=== PATIENT | female | born 1990 | race African-American/Black ===

== ENCOUNTER 2018-10-06 12:10 | Emergency (ER) | payer OTHER ==
[~2018-10-06] VITALS: Ht 162.6 cm; Wt 163.3 kg
[~2018-10-06 12:10] MED LIST: CLONIDINE0.1 PO; PHENERGAN 25 MG25 M1 PO
[2018-10-06 14:48] LABS: HEMATOCRIT 34.9 % (37.0-47.0); HEMOGLOBIN 11.4 gm/dL (12.0-15.0); MCH 24.7 pg (26.0-34.0); MCHC 32.6 g/dL (28.0-37.0); MCV 75.8 fL (80.0-100.0); RBC 4.61 mil/uL (4.20-5.00); RDW 16.7 % (10.5-14.5); WBC 7.8 thou/uL (4.0-11.0)
[2018-10-06 14:59] LABS: CALCIUM 8.9 mg/dL (8.5-10.1); CREATININE 0.9 mg/dL (0.6-1.0); POTASSIUM 3.6 mmol/L (3.5-5.1)
[2018-10-06 15:04] LABS: ALBUMIN 2.9 g/dL (3.4-5.0); TOTAL BILIRUBIN 0.3 mg/dL (<0.1-1.0); TOTAL PROTEIN 7.5 g/dL (6.4-8.2)
[2018-10-06] MEDS ORDERED: HYDROCHLOROTH12.5 M1 PO (16:12)
[2018-10-06] MEDS ORDERED: BUTALB-APAP-CA1 EACH PO (16:13)
[2018-10-06 16:40] VITALS: BP 141/74
== END 2018-10-06 16:40 | disposition home or self-care (01) ==
LOC: ER 12:10
PROVIDERS: Physician Assistant
DX: G43.909 Migraine, unspecified, not intractable, without status migrainosus (principal); F17.210 Nicotine dependence, cigarettes, uncomplicated